=== PATIENT | male | born 1960 | race Caucasian/White ===

== ENCOUNTER 2017-07-26 15:35 | Outpatient (CLI) | payer BC ==
[~2017-07-26] VITALS: Ht 188 cm; Wt 90.7 kg
[2017-07-26 16:20] LABS: TOTAL HEMOGLOBIN 16.6 G/dl (14.0-18.0)
[2017-07-26] MEDS ORDERED: albuterol 2.5 MG/3 ML nebule NEB PRN (16:40)
[2017-07-26] MEDS ORDERED: albuterol 2.5 MG/3 ML nebule NEB ONE (17:30)
== END 2017-07-26 23:59 | disposition home or self-care (01) ==
LOC: RT 15:35
PROVIDERS: ATTEND Internal Medicine Pulmonary Disease
DX: J44.9 Chronic obstructive pulmonary disease, unspecified (principal); R06.09 Other forms of dyspnea; F17.200 Nicotine dependence, unspecified, uncomplicated
CPT/HCPCS: 85018; 94060; 94640; 94727; 94729; 94760

== ENCOUNTER 2019-02-20 15:39 | Outpatient (CLI) | payer OTHER ==
[~2019-02-20] VITALS: Ht 188 cm; Wt 97.1 kg
[2019-02-20] MEDS ORDERED: albuterol 2.5 MG/3 ML nebule NEB PRN (16:25)
== END 2019-02-20 23:59 | disposition home or self-care (01) ==
LOC: RT 15:39
PROVIDERS: ATTEND Orthopaedic Surgery
DX: J44.9 Chronic obstructive pulmonary disease, unspecified (principal)
CPT/HCPCS: 71046; 94060; 94727; 94729; 94760